=== PATIENT | female | born 1970 | race Caucasian/White ===

== ENCOUNTER 2021-02-21 15:21 | Inpatient (IN) | payer SELFPAY ==
[2021-02-21 15:52] LABS: Mean Corpuscular HGB CONC 34.1 g/dL (32.0-36.0); Mean Corpuscular Hemoglobin 32.9 pg (27.0-31.0); Mean Corpuscular Volume 96.5 fL (78.0-98.0); Mean Platelet Volume 7.3 fL (7.4-10.4); Platelet Count 175 thou/uL (130-400); RBC Distribution Width 11.8 % (11.5-14.5); Red Blood Cell (RBC) Count 3.04 mill/uL (4.20-5.40); White Blood Cell (WBC) Count 26.1 thou/uL (4.8-10.8)
[2021-02-21 16:00] LABS: INR-International Normal Ratio 2.2; Prothrombin Time 24.7 sec (12.0-14.7)
[2021-02-21 16:12] LABS: ALT (SGPT) 8 U/L (8-55); AST (SGOT) 32 U/L (5-34); Acetaminophen Less than 6.0 mcg/mL (10.0-30.0); Albumin 2.4 g/dL (3.5-5.0); Alcohol Less than 10 mg/dL (Less than 10); Alkaline Phosphatase 52 U/L (40-110); Anion Gap 12 mmol/L (10-20); BUN (Urea Nitrogen) 9 mg/dL (7.0-18.7); Bilirubin, Total 0.4 mg/dL (0.2-1.2); Calc. Creatinine Clearance 0 mL/min (70-130); Calcium 6.6 mg/dL (7.8-10.44); Carbon Dioxide 18 mmol/L (22-29); Chloride 114 mmol/L (98-107); Globulin 1.5 g/dL (2.4-3.5); Glucose 247 mg/dL (70-105); Potassium 3.2 mmol/L (3.5-5.1); Protein, Total 3.9 g/dL (6.0-8.3); Salicylate Less than 8.0 mg/dL (15.0-30.0); Sodium 141 mmol/L (136-145)
[2021-02-21 16:22] LABS: Band 5 % (5-11); Eosinophils 1 % (0-10); Lymphocytes 9 % (21-51); MDiff Complete? YES; Monocytes 4 % (0-10); Neutrophil 81 % (42-75); Platelet Morphology Comment Appears Adequate; RBC Morphology Normal
[2021-02-21 16:37] LABS: CKMB 7.2 ng/mL (0-6.6)
[2021-02-21 16:50] LABS: Actual Bicarbonate (HCO3a) 21.5 mEq/L (22-28); Analyzer IN Cardio ER; Base Excess (BEa) -5.2 mEq/L (-2.0 to +3.0); Calcium, Ionized (arterial) 0.95 mmol/L (1.12-1.30); Carboxyhemoglobin (COHb) 1.8 gm% (0.0-3.0); Hemoglobin (Hb) 8.7 g/dL (12.0-16.0); O2 Tension (PaO2), arterial 109.1 mmHg (80.0-100.0); Potassium - ABG Lab 3.33 mmol/L (3.70-5.30); pH, Arterial 7.27 (7.35-7.45)
[2021-02-21 16:54] LABS: Puncture Site LRA
[2021-02-21] MEDS ORDERED: Calcium Chloride 1 GM/10 ML Abboject SYRINGE ONE ×2 (16:59→18:16)
[2021-02-21] MEDS ORDERED: Dextrose 5% in Water 1,000 ML IV PRN (17:08)
[2021-02-21] MEDS ORDERED: Dextrose 50% Abboject 50 ML SYRINGE SLOW IVP PRN (17:08)
[2021-02-21] MEDS ORDERED: Ondansetron PF 4 MG/2 ML Vial IVP PRN (17:08)
[2021-02-21 18:55] LABS: Lactic Acid 2.4 mmol/L (0.5-2.2)
[2021-02-21] MEDS: Vasopressin 20 UNIT, Admixture Fee 1 EACH in Sodium Chloride 0.9% 50 ML IV SCH (19:11)
[2021-02-21] MEDS: Levothyroxine Sodium 400 MCG in Sodium Chloride 0.9% 100 ML IVPB SCH (19:27)
[2021-02-21] MEDS ORDERED: Calcium Chloride 1 GM/10 ML Abboject SYRINGE IVP SCH (19:30)
[2021-02-21 19:38] LABS: INR-International Normal Ratio 3.2; Prothrombin Time 33.5 sec (12.0-14.7)
[2021-02-21 19:39] LABS: PTT 87.9 sec (22.9-36.1)
[2021-02-21] MEDS: Sodium Chloride 0.9% 1,000 ML IV SCH (19:39)
[2021-02-21 19:45] LABS: Platelet Count 143 thou/uL (130-400)
[2021-02-21 19:50] LABS: #Lymphocytes 2.2 thou/uL (1.20-3.40); #Monocytes 1.1 thou/uL (0.11-0.59); #Neutrophils 12.6 thou/uL (1.40-6.50); %Basophils 0.3 % (0.0-1.0); %Eosinophils 0.2 % (0.0-10.0); %Lymphocytes 13.8 % (21.0-51.0); %Monocytes 6.6 % (0.0-10.0); %Neutrophils 79.2 % (42.0-75.0); Hemoglobin 5.7 g/dL (12.0-16.0); Mean Corpuscular HGB CONC 33.7 g/dL (32.0-36.0); Mean Corpuscular Hemoglobin 31.9 pg (27.0-31.0); Mean Corpuscular Volume 94.6 fL (78.0-98.0); Mean Platelet Volume 6.6 fL (7.4-10.4); Platelet Count 122 thou/uL (130-400); RBC Distribution Width 13.8 % (11.5-14.5); Red Blood Cell (RBC) Count 1.77 mill/uL (4.20-5.40)
[2021-02-21 20:00] LABS: D-Dimer Test Greater than 20.00 *mcg/mL (0.27-0.43)
[2021-02-21 20:02] LABS: Fibrinogen 27 mg/dL (253-463)
[2021-02-21 20:06] LABS: Magnesium 1.5 mg/dL (1.6-2.6)
[2021-02-21 20:19] LABS: Anion Gap 10 mmol/L (10-20); BUN (Urea Nitrogen) 11 mg/dL (7.0-18.7); Calc. Creatinine Clearance 0 mL/min (70-130); Calcium 10.8 mg/dL (7.8-10.44); Carbon Dioxide 18 mmol/L (22-29); Chloride 116 mmol/L (98-107); Glucose 271 mg/dL (70-105); Magnesium 1.6 mg/dL (1.6-2.6); Potassium 4.4 mmol/L (3.5-5.1); Sodium 140 mmol/L (136-145)
[2021-02-21 20:27] LABS: FSP-Qualitative ABNORMAL (Normal); FSP-Semiquantitative >320 mcg/mL (Less than 5)
[2021-02-21] MEDS ORDERED: Magnesium Sulfate 4 GM in Sodium Chloride 0.9% 250 ML 250 ML IVPB SCH (20:30)
[2021-02-21] MEDS ORDERED: Refresh Lacri-lube Opth Oint 7 GM TUBE FS SCH (20:45)
[2021-02-21] MEDS ORDERED: Hydrocortisone Sod Succ/PF 500 mg/4 ml Vial SLOW IVP SCH (21:00)
[2021-02-21] MEDS ORDERED: Norepinephrine 8 MG in Dextrose 5% in Water 242 ML IVPB PRN (21:15)
[2021-02-21 21:16] LABS: Actual Bicarbonate (HCO3a) 20.7 mEq/L (22-28); Base Excess (BEa) -4.3 mEq/L (-2.0 to +3.0); CO2 Tension 36.8 mmHg (35.0-45.0); Carboxyhemoglobin (COHb) 1.7 gm% (0.0-3.0); Hemoglobin (Hb) 5.6 g/dL (12.0-16.0); O2 Tension (PaO2), arterial 204.3 mmHg (80.0-100.0); pH, Arterial 7.37 (7.35-7.45)
[2021-02-21] MEDS: Phytonadione 10 MG/ML AMP SLOW IVP SCH (21:54)
[2021-02-21 23:32] VITALS: BMI 23.9
[2021-02-22] MEDS: Vasopressin 20 UNIT, Admixture Fee 1 EACH in Sodium Chloride 0.9% 50 ML IV SCH (01:05)
[2021-02-22] MEDS: Sodium Chloride 0.9% 1,000 ML IV SCH ×2 (01:06→14:20)
[2021-02-22] MEDS: Levothyroxine Sodium 400 MCG in Sodium Chloride 0.9% 100 ML IVPB SCH ×2 (01:06→10:56)
[2021-02-22] MEDS: Phytonadione 10 MG/ML AMP SLOW IVP SCH (01:07)
[2021-02-22 02:52] LABS: SARS-CoV-2 NAA Rapid Test Not Detected (NotDetected)
[2021-02-22 04:34] LABS: #Lymphocytes 0.6 thou/uL (1.20-3.40); #Monocytes 0.5 thou/uL (0.11-0.59); #Neutrophils 4.1 thou/uL (1.40-6.50); %Basophils 0.4 % (0.0-1.0); %Eosinophils 0.2 % (0.0-10.0); %Neutrophils 77.4 % (42.0-75.0); Mean Corpuscular HGB CONC 34.3 g/dL (32.0-36.0); Mean Corpuscular Hemoglobin 31.2 pg (27.0-31.0); Mean Corpuscular Volume 91.1 fL (78.0-98.0); Mean Platelet Volume 7.3 fL (7.4-10.4); Platelet Count 43 thou/uL (130-400); RBC Distribution Width 13.3 % (11.5-14.5); Red Blood Cell (RBC) Count 2.56 mill/uL (4.20-5.40); White Blood Cell (WBC) Count 5.3 thou/uL (4.8-10.8)
[2021-02-22 04:42] LABS: INR-International Normal Ratio 1.3; PTT 35.9 sec (22.9-36.1); Prothrombin Time 16.5 sec (12.0-14.7)
[2021-02-22 05:05] LABS: Anion Gap 9 mmol/L (10-20); BUN (Urea Nitrogen) 17 mg/dL (7.0-18.7); Calc. Creatinine Clearance 59 mL/min (70-130); Carbon Dioxide 21 mmol/L (22-29); Chloride 117 mmol/L (98-107); Glucose 159 mg/dL (70-105); Magnesium 2.4 mg/dL (1.6-2.6); Phosphorus 3.1 mg/dL (2.3-4.7); Potassium 3.8 mmol/L (3.5-5.1); Sodium 143 mmol/L (136-145)
[2021-02-22] MEDS: Hydrocortisone Sod Succ/PF 100 mg/2 ml Vial IVP SCH ×2 (05:32→14:23)
[2021-02-22 10:11] VITALS: TEMP 97.7
[2021-02-22] MEDS ORDERED: Furosemide 20 MG/2 ML VIAL SLOW IVP SCH (10:45)
[2021-02-22 15:03] VITALS: BP 122/69
[2021-02-22 15:14] LABS: Actual Bicarbonate (HCO3a) 18.6 mEq/L (22-28); Base Excess (BEa) -5.1 mEq/L (-2.0 to +3.0); CO2 Tension 29.5 mmHg (35.0-45.0); Carboxyhemoglobin (COHb) 0.5 gm% (0.0-3.0); Hemoglobin (Hb) 8.6 g/dL (12.0-16.0); O2 Tension (PaO2), arterial 472.4 mmHg (80.0-100.0); Potassium - ABG Lab 3.57 mmol/L (3.70-5.30); pH, Arterial 7.42 (7.35-7.45)
[2021-02-22 15:18] LABS: Puncture Site Arterial Line
[2021-02-22 15:19] LABS: ALV-art Gradient 203.725 mmHg (0-20)
== END 2021-02-22 12:40 | disposition expired | DRG 85 ==
LOC: ERS 15:21 → EDBD 15:21 → CCU 16:21
PROVIDERS: ADMIT Surgery; ATTEND Surgery
PROC: 02HV33Z Insertion of Infusion Device into Superior Vena Cava, Percutaneous Approach (ICD-10-PCS; principal; 2021-02-21)
PROC: 30233L1 Transfusion of Nonautologous Fresh Plasma into Peripheral Vein, Percutaneous Approach (ICD-10-PCS; 2021-02-21)
PROC: 30233N1 Transfusion of Nonautologous Red Blood Cells into Peripheral Vein, Percutaneous Approach (ICD-10-PCS; 2021-02-21)
PROC: 30233M1 Transfusion of Nonautologous Plasma Cryoprecipitate into Peripheral Vein, Percutaneous Approach (ICD-10-PCS; 2021-02-21)
PROC: 30233K1 Transfusion of Nonautologous Frozen Plasma into Peripheral Vein, Percutaneous Approach (ICD-10-PCS; 2021-02-21)
PROC: 5A1935Z Respiratory Ventilation, Less than 24 Consecutive Hours (ICD-10-PCS; 2021-02-21)
PROC: 0BH18EZ Insertion of Endotracheal Airway into Trachea, Via Natural or Artificial Opening Endoscopic (ICD-10-PCS; 2021-02-21)
PROC: 3E033XZ Introduction of Vasopressor into Peripheral Vein, Percutaneous Approach (ICD-10-PCS; 2021-02-21)
DX: S02.91XA Unspecified fracture of skull, initial encounter for closed fracture (principal); J96.00 Acute respiratory failure, unspecified whether with hypoxia or hypercapnia; D62 Acute posthemorrhagic anemia; D68.9 Coagulation defect, unspecified; S01.94XA Puncture wound with foreign body of unspecified part of head, initial encounter; S02.92XA Unspecified fracture of facial bones, initial encounter for closed fracture; W34.00XA Accidental discharge from unspecified firearms or gun, initial encounter; Y92.9 Unspecified place or not applicable
CPT/HCPCS: 36415; 36416; 36430; 36600; 70450; 70486; 71045; 72125; 78610; 80048; 80053; 80307; 82533; 82553; 82805; 83605; 83735; 84100; 84484; 85025; 85049; 85300; 85362; 85379; 85384; 85610; 85730; 86850; 86900; 86901; 94002; 94003; A9521; G0390; J1720; J1940; J3430; J3475; J3490; J7050; J7070; J7620; P9012; P9016; P9045; P9059; U0002

== ENCOUNTER 2021-02-22 12:40 | Day surgery (SDC) | payer OTHER ==
[2021-02-22 17:55] LABS: #Lymphocytes 0.7 thou/uL (1.20-3.40); #Monocytes 0.8 thou/uL (0.11-0.59); #Neutrophils 8.4 thou/uL (1.40-6.50); %Basophils 0.1 % (0.0-1.0); %Eosinophils 0.1 % (0.0-10.0); %Lymphocytes 7.3 % (21.0-51.0); %Monocytes 7.8 % (0.0-10.0); %Neutrophils 84.8 % (42.0-75.0); RBC Distribution Width 13.7 % (11.5-14.5)
[2021-02-22 18:11] LABS: INR-International Normal Ratio 1.1; Prothrombin Time 14.5 sec (12.0-14.7)
[2021-02-22 18:12] LABS: PTT 36.3 sec (22.9-36.1)
[2021-02-22 18:23] LABS: Hemoglobin 8.4 g/dL (12.0-16.0); Mean Corpuscular HGB CONC 35.8 g/dL (32.0-36.0); Mean Corpuscular Hemoglobin 32.4 pg (27.0-31.0); Mean Corpuscular Volume 90.6 fL (78.0-98.0); Mean Platelet Volume 8.2 fL (7.4-10.4); Platelet Count 72 thou/uL (130-400); Red Blood Cell (RBC) Count 2.59 mill/uL (4.20-5.40)
[2021-02-22] MEDS ORDERED: Piperacillin/Tazobactam 3.375 GM in Sodium Chloride 0.9% 100 ML IVPB SCH (18:30)
[2021-02-22] MEDS: Albuterol Sulfate 2.5 mg/0.5 ml Neb NEB SCH ×2 (18:30→22:21)
[2021-02-22] MEDS ORDERED: Vasopressin 20 UNIT, Admixture Fee 1 EACH in Sodium Chloride 0.9% 50 ML IV SCH (18:30)
[2021-02-22] MEDS ORDERED: Sodium Chloride 0.45% 1,000 ML IV SCH (18:30)
[2021-02-22] MEDS ORDERED: Norepinephrine 8 MG/0.9% NS 250 ML IVPB SCH (18:30)
[2021-02-22 18:46] LABS: ALT (SGPT) 14 U/L (8-55); AST (SGOT) 24 U/L (5-34); Albumin 2.8 g/dL (3.5-5.0); Alkaline Phosphatase 41 U/L (40-110); Anion Gap 9 mmol/L (10-20); BUN (Urea Nitrogen) 20 mg/dL (7.0-18.7); Bilirubin, Direct 0.2 mg/dL (0.1-0.3); Bilirubin, Total 0.3 mg/dL (0.2-1.2); CK (CPK) 217 U/L (29-168); Calc. Creatinine Clearance 0 mL/min (70-130); Calcium 8.3 mg/dL (7.8-10.44); Carbon Dioxide 21 mmol/L (22-29); Chloride 118 mmol/L (98-107); Globulin 1.9 g/dL (2.4-3.5); Glucose 147 mg/dL (70-105); Lipase 5 U/L (8-78); Magnesium 2.1 mg/dL (1.6-2.6); Phosphorus 4.5 mg/dL (2.3-4.7); Potassium 3.6 mmol/L (3.5-5.1); Protein, Total 4.7 g/dL (6.0-8.3); Sodium 144 mmol/L (136-145)
[2021-02-22 18:47] LABS: CKMB 10.1 ng/mL (0-6.6)
[2021-02-22 18:56] LABS: Actual Bicarbonate (HCO3a) 21.6 mEq/L (22-28); Base Excess (BEa) -4.3 mEq/L (-2.0 to +3.0); CO2 Tension 43.3 mmHg (35.0-45.0); Calcium, Ionized (arterial) 1.21 mmol/L (1.12-1.30); Carboxyhemoglobin (COHb) 0.6 gm% (0.0-3.0); Hemoglobin (Hb) 8.1 g/dL (12.0-16.0); O2 Tension (PaO2), arterial 87.9 mmHg (80.0-100.0); Potassium - ABG Lab 3.52 mmol/L (3.70-5.30); Puncture Site Arterial Line; pH, Arterial 7.32 (7.35-7.45)
[2021-02-22 19:01] LABS: ALV-art Gradient 214.475 mmHg (0-20)
[2021-02-22] MEDS ORDERED: Albuterol Sulfate 2.5 mg/0.5 ml Neb NEB SCH (21:00)
[2021-02-22] MEDS: Levothyroxine Sodium 400 MCG in Sodium Chloride 0.9% 100 ML IVPB SCH (21:05)
[2021-02-22] MEDS: Hydrocortisone Sod Succ/PF 100 mg/2 ml Vial IVP SCH (21:42)
[2021-02-22 22:07] LABS: Bilirubin Negative (Negative); Blood, Urine Negative (Negative); Clarity Clear (Clear); Glucose, Urine (Dipstick) Normal (Negative); Ketone, Urine Negative (Negative); Leukocyte Negative Leu/uL (Negative); Mucous/LPF Rare LPF (<2+); Nitrite Negative (Negative); Protein, Urine (Dipstick) Negative (Neg-Trace); RBC/HPF 0-3 HPF (0-3); Specific Gravity, Urine 1.017 (1.002-1.036); Squamous Epithelial 0-3 HPF (0-3); Urobilinogen Normal mg/dL (Less than 2); WBC/HPF 0-3 HPF (0-3)
[2021-02-22] MEDS ORDERED: Albumin 25% 25 GM/100 ML BOT IVPB SCH (22:15)
[2021-02-22 22:40] LABS: Bacteria/HPF Rare-Few HPF (None Seen); Yeast-Budding Rare HPF (None Seen)
[2021-02-23] MEDS: Piperacillin/Tazobactam 3.375 GM in Sodium Chloride 0.9% 100 ML IVPB SCH ×4 (00:06→17:33)
[2021-02-23 01:00] LABS: Lactic Acid 2.3 mmol/L (0.5-2.2)
[2021-02-23 01:02] LABS: #Lymphocytes 0.5 thou/uL (1.20-3.40); #Neutrophils 15.8 thou/uL (1.40-6.50); %Eosinophils 0.1 % (0.0-10.0); %Lymphocytes 2.8 % (21.0-51.0); %Neutrophils 91.2 % (42.0-75.0); Hemoglobin 7.8 g/dL (12.0-16.0); Mean Corpuscular Hemoglobin 32.2 pg (27.0-31.0); Mean Platelet Volume 8.4 fL (7.4-10.4); Platelet Count 77 thou/uL (130-400); RBC Distribution Width 13.8 % (11.5-14.5); Red Blood Cell (RBC) Count 2.43 mill/uL (4.20-5.40); White Blood Cell (WBC) Count 17.3 thou/uL (4.8-10.8)
[2021-02-23 01:05] LABS: Actual Bicarbonate (HCO3a) 21.8 mEq/L (22-28); Base Excess (BEa) -4.4 mEq/L (-2.0 to +3.0); CO2 Tension 45.8 mmHg (35.0-45.0); Calcium, Ionized (arterial) 1.19 mmol/L (1.12-1.30); Carboxyhemoglobin (COHb) 0.1 gm% (0.0-3.0); Hemoglobin (Hb) 7.1 g/dL (12.0-16.0); O2 Tension (PaO2), arterial 420.6 mmHg (80.0-100.0); Potassium - ABG Lab 3.65 mmol/L (3.70-5.30); Puncture Site Arterial Line
[2021-02-23 01:07] LABS: ALT (SGPT) 12 U/L (8-55); AST (SGOT) 20 U/L (5-34); Albumin 3.3 g/dL (3.5-5.0); Alkaline Phosphatase 41 U/L (40-110); Anion Gap 11 mmol/L (10-20); BUN (Urea Nitrogen) 21 mg/dL (7.0-18.7); Bilirubin, Direct 0.1 mg/dL (0.1-0.3); Bilirubin, Total 0.3 mg/dL (0.2-1.2); CK (CPK) 162 U/L (29-168); Calc. Creatinine Clearance 0 mL/min (70-130); Calcium 8.6 mg/dL (7.8-10.44); Carbon Dioxide 22 mmol/L (22-29); Chloride 116 mmol/L (98-107); Glucose 175 mg/dL (70-105); INR-International Normal Ratio 1.1; Lipase 4 U/L (8-78); PTT 33.9 sec (22.9-36.1); Phosphorus 4.2 mg/dL (2.3-4.7); Potassium 3.8 mmol/L (3.5-5.1); Protein, Total 5.3 g/dL (6.0-8.3); Prothrombin Time 14.3 sec (12.0-14.7); Sodium 145 mmol/L (136-145)
[2021-02-23] MEDS: Albuterol Sulfate 2.5 mg/0.5 ml Neb NEB SCH ×6 (01:30→22:19)
[2021-02-23 01:54] LABS: CKMB 9.6 ng/mL (0-6.6); Critical Call CKMB RESULT DECREASING
[2021-02-23] MEDS: Hydrocortisone Sod Succ/PF 100 mg/2 ml Vial IVP SCH ×3 (05:14→20:50)
[2021-02-23 07:20] LABS: Actual Bicarbonate (HCO3a) 22.6 mEq/L (22-28); Base Excess (BEa) -3.1 mEq/L (-2.0 to +3.0); CO2 Tension 44.2 mmHg (35.0-45.0); Calcium, Ionized (arterial) 1.23 mmol/L (1.12-1.30); Hemoglobin (Hb) 6.7 g/dL (12.0-16.0); O2 Tension (PaO2), arterial 483.4 mmHg (80.0-100.0); Potassium - ABG Lab 3.48 mmol/L (3.70-5.30); pH, Arterial 7.33 (7.35-7.45)
[2021-02-23 07:22] LABS: Puncture Site Arterial Line
[2021-02-23 07:28] LABS: Hemoglobin A1c 5.1 % (4.0-6.0)
[2021-02-23 07:29] LABS: #Lymphocytes 0.6 thou/uL (1.20-3.40); %Monocytes 7.7 % (0.0-10.0); %Neutrophils 87.3 % (42.0-75.0); Mean Corpuscular HGB CONC 35.2 g/dL (32.0-36.0); Mean Corpuscular Hemoglobin 32.1 pg (27.0-31.0); Mean Corpuscular Volume 91.4 fL (78.0-98.0); Mean Platelet Volume 8.5 fL (7.4-10.4); Platelet Count 70 thou/uL (130-400); RBC Distribution Width 13.9 % (11.5-14.5); Red Blood Cell (RBC) Count 2.18 mill/uL (4.20-5.40); White Blood Cell (WBC) Count 12.6 thou/uL (4.8-10.8)
[2021-02-23 07:37] LABS: Lactic Acid 1.5 mmol/L (0.5-2.2)
[2021-02-23 07:38] LABS: Fibrinogen 320 mg/dL (253-463)
[2021-02-23 07:39] LABS: INR-International Normal Ratio 1.1; PTT 33.7 sec (22.9-36.1); Prothrombin Time 14.5 sec (12.0-14.7)
[2021-02-23 07:47] LABS: D-Dimer Test 6.06 *mcg/mL (0.27-0.43)
[2021-02-23 07:48] LABS: ALT (SGPT) 9 U/L (8-55); AST (SGOT) 15 U/L (5-34); Albumin 3.5 g/dL (3.5-5.0); Alkaline Phosphatase 39 U/L (40-110); Anion Gap 12 mmol/L (10-20); BUN (Urea Nitrogen) 18 mg/dL (7.0-18.7); Bilirubin, Direct 0.1 mg/dL (0.1-0.3); Bilirubin, Total 0.2 mg/dL (0.2-1.2); CK (CPK) 143 U/L (29-168); Calc. Creatinine Clearance 0 mL/min (70-130); Calcium 8.3 mg/dL (7.8-10.44); Carbon Dioxide 21 mmol/L (22-29); Chloride 118 mmol/L (98-107); Globulin 1.5 g/dL (2.4-3.5); Glucose 167 mg/dL (70-105); Magnesium 2.4 mg/dL (1.6-2.6); Phosphorus 2.8 mg/dL (2.3-4.7); Potassium 3.6 mmol/L (3.5-5.1); Sodium 147 mmol/L (136-145)
[2021-02-23 08:05] LABS: CKMB 7.8 ng/mL (0-6.6); Critical Call CKMB RESULT DECREASING
[2021-02-23] MEDS: Levothyroxine Sodium 400 MCG in Sodium Chloride 0.9% 100 ML IVPB SCH ×3 (08:14→19:44)
[2021-02-23 08:31] LABS: FSP-Qualitative ABNORMAL (Normal); FSP-Semiquantitative >=20 & <40 mcg/mL (Less than 5); Platelet Count 74 thou/uL (130-400)
[2021-02-23 09:39] VITALS: BMI 24.5
[2021-02-23 14:46] LABS: Actual Bicarbonate (HCO3a) 19.4 mEq/L (22-28); Base Excess (BEa) -6.2 mEq/L (-2.0 to +3.0); Calcium, Ionized (arterial) 1.28 mmol/L (1.12-1.30); Carboxyhemoglobin (COHb) 0.3 gm% (0.0-3.0); Hemoglobin (Hb) 9.2 g/dL (12.0-16.0); O2 Tension (PaO2), arterial 136.7 mmHg (80.0-100.0); Potassium - ABG Lab 3.43 mmol/L (3.70-5.30); Puncture Site Arterial Line; pH, Arterial 7.32 (7.35-7.45)
[2021-02-23] MEDS ORDERED: Furosemide 20 MG/2 ML VIAL SLOW IVP SCH (15:00)
[2021-02-23 15:28] LABS: #Lymphocytes 0.9 thou/uL (1.20-3.40); #Monocytes 0.9 thou/uL (0.11-0.59); #Neutrophils 10.5 thou/uL (1.40-6.50); %Basophils 0.2 % (0.0-1.0); %Lymphocytes 7.2 % (21.0-51.0); %Monocytes 7.5 % (0.0-10.0); %Neutrophils 85.1 % (42.0-75.0); Hemoglobin 8.8 g/dL (12.0-16.0); Mean Corpuscular HGB CONC 34.4 g/dL (32.0-36.0); Mean Corpuscular Volume 92.9 fL (78.0-98.0); Mean Platelet Volume 8.8 fL (7.4-10.4); Platelet Count 73 thou/uL (130-400); RBC Distribution Width 14.2 % (11.5-14.5); Red Blood Cell (RBC) Count 2.76 mill/uL (4.20-5.40); White Blood Cell (WBC) Count 12.4 thou/uL (4.8-10.8)
[2021-02-23 15:32] VITALS: TEMP 99.3
[2021-02-23 15:41] LABS: Lactic Acid 1.4 mmol/L (0.5-2.2)
[2021-02-23 15:51] LABS: ALT (SGPT) 11 U/L (8-55); AST (SGOT) 15 U/L (5-34); Albumin 3.5 g/dL (3.5-5.0); Alkaline Phosphatase 42 U/L (40-110); Anion Gap 8 mmol/L (10-20); BUN (Urea Nitrogen) 14 mg/dL (7.0-18.7); Bilirubin, Direct 0.3 mg/dL (0.1-0.3); Bilirubin, Total 0.7 mg/dL (0.2-1.2); CK (CPK) 167 U/L (29-168); Calc. Creatinine Clearance 88 mL/min (70-130); Calcium 8.9 mg/dL (7.8-10.44); Carbon Dioxide 24 mmol/L (22-29); Chloride 121 mmol/L (98-107); Globulin 1.6 g/dL (2.4-3.5); Glucose 173 mg/dL (70-105); Magnesium 2.3 mg/dL (1.6-2.6); Phosphorus 2.4 mg/dL (2.3-4.7); Potassium 3.3 mmol/L (3.5-5.1); Protein, Total 5.1 g/dL (6.0-8.3); Sodium 150 mmol/L (136-145)
[2021-02-23 16:07] LABS: CKMB 7.2 ng/mL (0-6.6); Critical Call CKMB RESULT DECREASING
[2021-02-23] MEDS ORDERED: Dextrose 5% in Water 1,000 ML IV PRN (17:30)
[2021-02-23] MEDS ORDERED: Magnesium Sulfate 2 GM in Sodium Chloride 0.9% 100 ML IVPB SCH (17:30)
[2021-02-23] MEDS ORDERED: Dextrose 50% Abboject 50 ML SYRINGE IVP PRN (17:30)
[2021-02-23] MEDS: Insulin Regular 300 UNITS/3 ML VIAL SC PRN ×2 (17:32→21:26)
[2021-02-23 17:41] LABS: Bilirubin Negative (Negative); Blood, Urine Negative (Negative); Clarity Clear (Clear); Glucose, Urine (Dipstick) Normal (Negative); Ketone, Urine Negative (Negative); Leukocyte Negative Leu/uL (Negative); Nitrite Negative (Negative); Protein, Urine (Dipstick) Negative (Neg-Trace); Specific Gravity, Urine 1.004 (1.002-1.036); Urobilinogen Normal mg/dL (Less than 2)
[2021-02-23 17:48] LABS: Actual Bicarbonate (HCO3a) 23.8 mEq/L (22-28); CO2 Tension 45.3 mmHg (35.0-45.0); Calcium, Ionized (arterial) 1.27 mmol/L (1.12-1.30); Carboxyhemoglobin (COHb) 0.1 gm% (0.0-3.0); Hemoglobin (Hb) 9.1 g/dL (12.0-16.0); O2 Tension (PaO2), arterial 472.4 mmHg (80.0-100.0); pH, Arterial 7.34 (7.35-7.45)
[2021-02-23 17:49] LABS: Puncture Site Arterial Line
[2021-02-23 17:51] LABS: ALV-art Gradient -172.525 mmHg (0-20)
[2021-02-23] MEDS: Potassium Chloride 20 MEQ in Premix Bag 1 BAG IVPB SCH ×2 (17:57→19:31)
[2021-02-23 18:08] LABS: INR-International Normal Ratio 1.1; Prothrombin Time 14.3 sec (12.0-14.7)
[2021-02-23 18:10] LABS: PTT 33.7 sec (22.9-36.1)
[2021-02-23] MEDS ORDERED: Magnesium 2 GM/50 ML 2 GM in Premix Bag 1 BAG IVPB SCH (19:30)
[2021-02-23] MEDS ORDERED: Potassium Phosphate 20 MMOL in Sodium Chloride 0.9% 250 ML 250 ML IVPB SCH (20:00)
[2021-02-23 21:02] LABS: #Lymphocytes 0.4 thou/uL (1.20-3.40); #Neutrophils 10.7 thou/uL (1.40-6.50); %Eosinophils 0.2 % (0.0-10.0); %Lymphocytes 2.9 % (21.0-51.0); %Monocytes 8.5 % (0.0-10.0); %Neutrophils 88.4 % (42.0-75.0); Hemoglobin 8.7 g/dL (12.0-16.0); Mean Corpuscular HGB CONC 34.9 g/dL (32.0-36.0); Mean Corpuscular Volume 91.9 fL (78.0-98.0); Mean Platelet Volume 8.3 fL (7.4-10.4); Platelet Count 82 thou/uL (130-400); RBC Distribution Width 14.2 % (11.5-14.5); Red Blood Cell (RBC) Count 2.72 mill/uL (4.20-5.40); White Blood Cell (WBC) Count 12.1 thou/uL (4.8-10.8)
[2021-02-23 21:19] LABS: Lactic Acid 1.5 mmol/L (0.5-2.2)
[2021-02-23 21:25] LABS: BUN (Urea Nitrogen) 13 mg/dL (7.0-18.7); Bilirubin, Direct 0.2 mg/dL (0.1-0.3); Bilirubin, Total 0.4 mg/dL (0.2-1.2); Carbon Dioxide 22 mmol/L (22-29); Sodium 156 mmol/L (136-145)
[2021-02-23 22:23] VITALS: BP 111/43
[2021-02-23 22:32] LABS: ALT (SGPT) 10 U/L (8-55); AST (SGOT) 14 U/L (5-34); Albumin 3.4 g/dL (3.5-5.0); Alkaline Phosphatase 47 U/L (40-110); Anion Gap 10 mmol/L (10-20); CK (CPK) 221 U/L (29-168); Calc. Creatinine Clearance 84 mL/min (70-130); Calcium 9.1 mg/dL (7.8-10.44); Glucose 167 mg/dL (70-105); Magnesium 2.9 mg/dL (1.6-2.6); Phosphorus 2.3 mg/dL (2.3-4.7); Potassium 3.4 mmol/L (3.5-5.1); Protein, Total 5.6 g/dL (6.0-8.3)
[2021-02-23 23:10] LABS: Bilirubin, Direct 0.2 mg/dL (0.1-0.3); Bilirubin, Total 0.4 mg/dL (0.2-1.2)
[2021-02-23 23:19] LABS: Chloride 127 mmol/L (98-107)
[2021-02-23 23:34] LABS: INR-International Normal Ratio 1.1; Prothrombin Time 14.3 sec (12.0-14.7)
[2021-02-23 23:35] LABS: PTT 32.9 sec (22.9-36.1)
== END 2021-02-23 23:55 | disposition expired ==
LOC: SJX 12:40 → CDU 12:40 → CCU 02-23 18:46 → SJX 02-23 23:55
DX: Z52.9 Donor of unspecified organ or tissue (principal)
CPT/HCPCS: 36416; 36430; 71045; 71250; 74177; 80053; 81001; 81003; 82150; 82247; 82248; 82550; 82553; 82805; 83036; 83605; 83690; 83735; 84100; 84484; 85025; 85049; 85300; 85362; 85379; 85384; 85610; 85730; 86850; 86900; 86901; 87070; 87077; 87186; 93005; 93010; 93306; 94002; 94003; J1720; J1815; J1940; J2543; J3475; J3480; J3490; J7050; J7611; P9016; P9047